=== PATIENT | male | born 1995 | race African-American/Black ===

== ENCOUNTER 2019-10-09 15:47 | Emergency (ER) | payer MEDICAID ==
[~2019-10-09] VITALS: Ht 172.7 cm; Wt 73.0 kg
[2019-10-09 15:57] VITALS: BP 124/78
[2019-10-09] MEDS ORDERED: SEROQUEL (15:57)
[2019-10-09] MEDS ORDERED: QUETIAPINE FUMARATE 25MG TABLET PO SCH (17:15)
== END 2019-10-09 17:44 | disposition home or self-care (01) ==
LOC: ER 15:47
DX: R44.0 Auditory hallucinations (principal); I49.9 Cardiac arrhythmia, unspecified
CPT/HCPCS: 93005; 99284